=== PATIENT | female | born 1995 | race Caucasian/White ===

== ENCOUNTER → 2023-01-31 14:19 | Outpatient (CLI) | payer BC, SELFPAY ==
--- NOTE | ~2023-01-31 | US_ITS ---
EXAMINATION: US OB transvaginal DATE: 01/31/2023 14:53 INDICATION: First trimester viability assessment TECHNIQUE: Real-time pelvic transabdominal and transvaginal ultrasound was performed. COMPARISON: None. FINDINGS: The uterus measures 10.0 x 5.1 cm. There appears to be a 3.8 cm intramural fibroid of the a nterior uterine body. There is an intrauterine gestational sac. A yolk sac is identified. heart motion is identified measuring 114 beats per minute (bpm) by M-mode Doppler. The crown rump le ngth measures 4 mm, which correlates with an estimated gestational age of 6 weeks and 1 day(s) (+/-) 4 day(s). The right ovary measures 2.8 x 2.3 x 2.1 cm. The left ovary measures 5.9 x 6.4 x 5.6 cm and contains a 5.1 cm simple cyst. There is normal vascular flow in the ovaries. There is a small amount of free f luid in the pelvis. IMPRESSION: 1. Live intrauterine with an estimated gestational age of 6 weeks and 1 day(s) (+/-) 4 day( s) and an estimated delivery date of 09/25/2023. 2. Right ovarian cyst measuring 5.1 cm. 3. Probable uterine fibroid. Reviewed, dictated and finalized at location B. IMPRESSION: 1. Live intrauterine with an estimated gestational age of 6 weeks and 1 day(s) (+/-) 4 day(s) and an estimated delivery date of 09/25/2023. 2. Right ovarian cyst measuring 5.1 cm. 3. Probable uterine fibroid.
== END ==
PROVIDERS: PCP Advanced Practice Midwife; Visit Provider Advanced Practice Midwife
DX: O36.80X0 Pregnancy with inconclusive fetal viability, not applicable or unspecified (principal); Z3A.01 Less than 8 weeks gestation of pregnancy; O34.81 Maternal care for other abnormalities of pelvic organs, first trimester; N83.291 Other ovarian cyst, right side
CPT/HCPCS: 76817

== ENCOUNTER → 2023-02-17 09:20 | Outpatient (CLI) | payer BC, SELFPAY ==
--- NOTE | ~2023-02-17 | US_ITS ---
Pelvic ultrasound. Clinical History: First trimester , ovarian cyst COMPARISON: 01/31/2023 Technique: Realtime transabdominal and transvaginal scanning of the pelvis was performed. Color flow Doppler and Doppler spectral analysis were performed. Findings: The uterus is anteverted, and contains an intrauterine gestation. [place]-rump length of 2.0 cm corresponds to an estimated gestational age of 8 weeks 4 days. heart rate is 171 bpm. The right ovary measures 3.3 x 1.8 x 2.5 cm. No significant right ovarian or adnexal mass is seen. The left ovary measures 6.2 x 6.5 x 4.7 cm. Left ovarian cyst measures 4.7 cm in maximum diameter. There is no evidence of free fluid in the cul de sac. Impression: Live intrauterine gestation with estimated gestational age of 8 weeks 4 days. heart rate is 171 bpm. Left ovarian cyst measures 4.7 cm in diameter, similar to prior exam. Reviewed, dictated and finalized at location . Impression: Live intrauterine gestation with estimated gestational age of 8 weeks 4 days. F etal heart rate is 171 bpm. Left ovarian cyst measures 4.7 cm in diameter, similar to prior exam.
== END ==
PROVIDERS: PCP Obstetrics & Gynecology Gynecology; Visit Provider Obstetrics & Gynecology Gynecology
DX: N83.201 Unspecified ovarian cyst, right side (principal); Z3A.08 8 weeks gestation of pregnancy
CPT/HCPCS: 76801

== ENCOUNTER → 2023-05-05 09:26 | Outpatient (CLI) | payer BC, SELFPAY ==
--- NOTE | ~2023-05-05 | US_ITS ---
EXAMINATION: US OB /maternal detail DATE: 05/05/2023 10:13 INDICATION: anatomic survey. TECHNIQUE: Real-time ultrasound of the pelvis was performed. COMPARISON: Ultrasound 02/17/2023, 01/31/23 FINDINGS: There is a single living fetus in breech presentation. The placenta is posterior, 7.8 cm from the ce rvix. The cervical length is 3.8 cm on transabdominal images, which is normal. heart rate is 14 1 beats per minute (bpm). The amniotic fluid volume is subjectively normal. The following biometric data were obtained: Biparietal diameter (BPD): 4.5 cm; head circumference (HC): 17.3 cm; abdominal circumference (AC): 14 .9 cm; femur length (FL): 3.1 cm. These measurements are concordant. Estimated weight is 318 g +/- 48 g, which correlates with the 63rd percentile when 09/25/23 is us ed as estimated date of delivery. As single measurements, these parameters are each equal to the following estimated gestational ages: BPD: 19 weeks 5 days. HC: 19 weeks 6 days. AC: 20 weeks 1 days. FL: 19 weeks 4 days. estimated gestational age based solely on measurements from this exam is 19 weeks 6 days +/- 1 weeks 3 days. The cerebral ventricles, cerebellum, cisterna magna, nuchal fold, lip, and visualized portions of the spine are normal. The heart is normal. The diaphragm, stomach, kidneys, and bladder are normal. Ther e are two umbilical arteries to yield a 3-vessel cord. The cord insertion is normal. IMPRESSION: 1. Single living fetus in breech presentation. 2. Estimated weight is 318 g +/- 48 g, which correlates with the 63rd percentile when 09/25/23 i s used as estimated date of delivery. This date was set by ultrasound on 01/31/2023. 3. Normal anatomic survey. Reviewed, dictated and finalized at location E. SS REGISTRAR IMPRESSION: 1. Single living fetus in breech presentation. 2. Estimated weight is 318 g +/- 48 g, which correlates with the 63 pe rcentile when 09/25/23 is used as estimated date of delivery. This date was set b y ultrasound on 01/31/2023. 3. Normal anatomic survey.
== END ==
PROVIDERS: PCP Advanced Practice Midwife; Visit Provider Advanced Practice Midwife
DX: Z36.9 Encounter for antenatal screening, unspecified (principal); Z3A.19 19 weeks gestation of pregnancy
CPT/HCPCS: 76805

== ENCOUNTER → 2023-08-01 15:28 | Outpatient (CLI) | payer BC, SELFPAY ==
--- NOTE | ~2023-08-01 | US_ITS ---
EXAMINATION: US OB follow up DATE: 08/01/2023 15:55 INDICATION: Expected size greater than expected for estimated gestational age during third trimester of TECHNIQUE: Real-time ultrasound of the pelvis was performed. The interpreting radiologist was not pre sent for the study. COMPARISON: 05/05/2023 FINDINGS: There is a single living fetus in vertex presentation. The placenta is posterior and not low-lying. Normal cervical length of 4.0 cm. heart rate is 143 beats per minute (bpm). The amniotic fluid index is 12.9 cm, which is normal (5th%-95%: 8.6-24.2 cm at 32 weeks estimated gestational age). 2.5 cm hypoechoic fibroid at the anterior uterine wall. The following biometric data were obtained: BPD: 8.1 cm -> 32 weeks 4 days Head circumference: 29.6 cm -> 32 weeks 5 days Abdominal circumference: 30.6 cm -> 34 weeks 4 days Femur length: 6.1 cm -> 31 weeks 4 days The femur length to abdominal circumference ratio is slightly greater than 2 standard deviations belo w the mean. These measurements are otherwise concordant. Head circumference to abdominal circumference ratio: 0.97 (normal range 0.96-1.11). Estimated weight: 2172 g (+/-) 326 g or 4 lbs. 13 oz. (+/-) 11 oz. IMPRESSION: 1. Single living fetus in vertex presentation with heart rate of 143 bpm. 2. Normal amniotic fluid index of 12.9 cm. 3. Estimated weight is 78th percentile by Hadlock criteria when 10/05/2023 is used as the estima james date of delivery (CLYDE). Please correlate with clinical information or earlier ultrasounds for mos t accurate CLYDE. 4. Femur length to abdominal circumference ratio slightly greater than 2 standard deviations below th e mean. 5. 2.5 cm hypoechoic fibroid at the anterior uterine wall. Reviewed, dictated and finalized at location A. ENT OUTREACH COORDINATOR IMPRESSION: 1. Single living fetus in vertex presentation with heart rate of 143 bpm. 2. Normal amniotic fluid index of 12.9 cm. 3. Estimated weight is 78th percentile by Hadlock criteria when 10/05/2023 is used as the estimated date of delivery (CLYDE). Please correlate with clinica l information or earlier ultrasounds for most accurate CLYDE. 4. Femur length to abdominal circumference ratio slightly greater than [address] deviations below the mean. 5. 2.5 cm hypoechoic fibroid at the anterior uterine wall.
== END ==
PROVIDERS: PCP Obstetrics & Gynecology Gynecology; Visit Provider Obstetrics & Gynecology Gynecology
DX: O36.63X0 Maternal care for excessive fetal growth, third trimester, not applicable or unspecified (principal); D25.9 Leiomyoma of uterus, unspecified; Z3A.00 Weeks of gestation of pregnancy not specified
CPT/HCPCS: 76816

== ENCOUNTER 2023-09-01 10:23 | Outpatient (CLI) | payer BC, SELFPAY ==
--- NOTE | ~2023-09-01 | US_ITS ---
EXAMINATION: US OB follow up DATE: 09/01/2023 11:05 INDICATION: Estimated size greater than expected for estimated gestational age [facility] TECHNIQUE: Real-time ultrasound of the pelvis was performed. The interpreting radiologist was not pre sent for the study. COMPARISON: 08/01/2023 FINDINGS: There is a single living fetus in vertex presentation. The placenta is posterior. heart rate i s 148 beats per minute (bpm). The amniotic fluid index is 14.3 cm, which is normal (5th%-95%: 7.5-3 4.4 cm at 37 weeks estimated gestational age). The following biometric data were obtained: BPD: 9.1 cm -> 37 weeks 0 days Head circumference: 32.6 cm -> 37 weeks 0 days Abdominal circumference: 33. cm -> 337 weeks 1 days Femur length: 7.2 cm -> 36 weeks 4 days These measurements are concordant. Head circumference to abdominal circumference ratio: 0.98 (normal range 0.92-1.05). Estimated weight: 3090 g (+/-) 464 g or 6 lbs. 13 oz. (+/-) 1 lb. 0 oz. IMPRESSION: 1. Single living fetus in vertex presentation with heart rate of 148 bpm. 2. Normal amniotic fluid index of 14.3 cm. 3. Estimated weight is 50th percentile by Hadlock criteria when 09/20/2023 is used as the estimat ed date of delivery (CLYDE). Please correlate with clinical information or earlier ultrasounds for most accurate CLYDE. Reviewed, dictated and finalized at location A. IMPRESSION: 1. Single living fetus in vertex presentation with heart rate of 148 bpm. 2. Normal amniotic fluid index of 14.3 cm. 3. Estimated weight is 50th percentile by Hadlock criteria when 09/20/2023 is used as the estimated date of delivery (CLYDE). Please correlate with clinical information or earlier ultrasounds for most accurate CLYDE.
== END 2023-09-01 10:24 ==
LOC: MICIMG 10:24
PROVIDERS: PCP Obstetrics & Gynecology Gynecology; Visit Provider Obstetrics & Gynecology Gynecology
DX: O36.63X0 Maternal care for excessive fetal growth, third trimester, not applicable or unspecified (principal); Z3A.00 Weeks of gestation of pregnancy not specified
CPT/HCPCS: 76816

== ENCOUNTER 2023-09-23 17:00 | Inpatient (IN) | payer BC, SELFPAY ==
[2023-09-23] VITALS (12 sets, daily range): BP systolic 102–141; BP diastolic 51–82; PULSE 74–103; TEMP 36.3–36.6; BMI 45.0
--- NOTE | 2023-09-23 18:10 | LDADM ---
This patient, Sandra Sanchez, was admitted to Labor/Delivery/Recovery 104 on 09/23/23 at 17:00. Plans for labor, pain management and were discussed with patient. Patient/family oriented to hospital policies and general routines including ID bracelet, bed and alarms, visiting hours, pain management, procedures, bathroom and other care routines, personal items, smoking policy, room service/diet and guest tray routines, security routines, and visiting hours. Patient/Family are encouraged to report perceived risks to care and to ask questions if they do not understand what they are told or what they should do. See OBIX for further documentation.
[2023-09-23] MEDS: miSOPROStol 25 MCG TABLET SUBLINGUAL (18:46)
[2023-09-23 19:29] LABS: Basophils Percent Auto 0.3 % (0.2-1.2); Eosinophils Absolute Auto 0.1 K/mm3 (0-0.3); Eosinophils Percent Auto 0.5 % (0-4.4); Hematocrit 31.1 % (37.0-47.0); Hemoglobin 10.2 g/dL (12.0-15.0); Immature Granulocyte Absolute 0.12 K/mm3 (0.00-0.031); Immature Granulocyte Percent A 0.8 % (0-0.5); Lymphocytes Absolute Auto 1.83 K/mm3 (0.9-3.2); Lymphocytes Percent Auto 12.9 % (18.3-44.2); Mean Corpuscular HGB Conc 32.8 g/dl (32-36); Mean Corpuscular Hemoglobin 27.9 pg (26-34); Mean Corpuscular Volume 85.2 fl (80-100); Mean Platelet Volume 11.6 fl (7.4-10.4); Monocytes Absolute Auto 0.9 K/mm3 (0.1-0.6); Monocytes Percent Auto 6.1 % (2.6-8.5); Neutrophils Absolute Auto 11.3 K/mm3 (1.3-6.7); Neutrophils Percent Auto 79.4 % (45.5-73.1); Platelet Count Result 284 k/mm3 (150-375); Red Blood Count 3.65 M/mm3 (4.2-5.4); Red Cell Distribution Width 13.1 % (11.5-14.5); White Blood Count 14.2 K/mm3 (4.5-10.0)
--- NOTE | 2023-09-23 19:34 | WPDANESEPP ---
Anes - Eval Pre Procedure Procedure: labor epidural Date/Time: 09/23/23 19:34 Surgeon: josie Preop Diagnosis: pain during labor Pre Op Diagnosis: IOL Patient Data Age: 28 Gender: F Height: 1.7 m Weight: 130.5 kg Last Vital Signs Temp 36.3 C L 09/23/23 18:50 Pulse 78 09/23/23 19:03 BP 109/51 L 09/23/23 19:03 O2 Del Method Room Air 09/22/23 08:00 Allergies Allergy/AdvReac Type Severity Reaction Status Date / Time No Known Allergies Allergy Verified 09/23/23 17:58 Home Medications Medication Instructions Recorded Confirmed Type aspirin 81 mg tablet 81 mg PO DAILY 09/01/23 09/01/23 History cholecalciferol (vitamin D3) 1,250 1,250 mcg PO WEEKLY 09/01/23 09/01/23 History mcg (50,000 unit) tablet cyanocobalamin (vitamin B-12) 500 500 mcg PO DAILY 09/01/23 09/01/23 History mcg tablet (Vitamin B-12) escitalopram oxalate 10 mg tablet 10 mg PO DAILY 09/01/23 09/01/23 History (Lexapro) loratadine 10 mg tablet (Claritin) 10 mg PO DAILY 09/01/23 09/01/23 History prenat.vits,char,aci-gyjb-wadck 1 tablet PO DAILY 09/01/23 09/23/23 History valacyclovir 500 mg tablet 500 mg PO Q12H 09/01/23 09/01/23 History (Valtrex) Laboratory Tests 09/23/23 09/23/23 17:56 19:18 WBC 14.2 H K/mm3 (4.5-10.0) RBC 3.65 L M/mm3 (4.2-5.4) Hgb 10.2 L g/dL (12.0-15.0) Hct 31.1 L % (37.0-47.0) MCV 85.2 fl (80-100) MCH 27.9 pg (26-34) MCHC 32.8 g/dl (32-36) RDW 13.1 % (11.5-14.5) Plt Count 284 k/mm3 (150-375) MPV 11.6 H fl (7.4-10.4) Immature Gran % (Auto) 0.8 H % (0-0.5) Neut % (Auto) 79.4 H % (45.5-73.1) Lymph % (Auto) 12.9 L % (18.3-44.2) [place] % (Auto) 6.1 % (2.6-8.5) Eos % (Auto) 0.5 % (0-4.4) Baso % (Auto) 0.3 % (0.2-1.2) Lymph # (Auto) 1.83 K/mm3 (0.9-3.2) [place] # (Auto) 0.9 H K/mm3 (0.1-0.6) Eos # (Auto) 0.1 K/mm3 (0-0.3) Baso # (Auto) 0.0 K/mm3 (0.0-0.1) Abs Immat Gran (auto) 0.12 H K/mm3 (0.00-0.031) Absolute Neuts (auto) 11.3 H K/mm3 (1.3-6.7) Absolute Nucleated RBC 0.000 K/mm3 (0.0-0.012) Nucleated RBC % 0.0 % (0.0-0.2) RPR Pending Blood Type O Positive Antibody Screen Pending Patient hx anesthesia problems: none Family hx anesthesia problems: none Results Review: All pre-operative results and documents have been reviewed as part of the pre-operative evaluation. [facility] Past Medical History Medical History (Updated 09/23/23 @ 19:36 by Cecilia Castañeda CRNA) Anxiety Depression HSV (herpes simplex virus) anogenital infection Hx of migraines IUP (intrauterine ), incidental Morbid obesity Family History Family History (Updated 09/01/23 @ 13:57 by Radha Granados RN) Father Diabetes mellitus Social History Social History Smoking status: Never smoker Substance use: never Do You Feel Safe in your Home?: Yes Lack of Transportation: No Lack of Food: Never True Current Housing: I Do Not Have Housing Concerned About Future Housing: No Difficulty Paying Gas/Electric Bills: No Difficulty Paying for Meds: No Currently Unemployed: No Education: Master's Degree or Higher Difficulty w/ Childcare or Family Care: No Spiritual care concerns: No Exam Day of Procedure 09/23/23 19:34
[2023-09-23] MEDS: miSOPROStol 25 MCG TABLET 50 MCG BY MOUTH (22:51)
[2023-09-23] MEDS: ACETAMINOPHEN 500 MG TABLET 1000 MG PO (23:54)
[2023-09-24] VITALS (187 sets, daily range): BP systolic 74–139; BP diastolic 33–93; PULSE 39–134; RESP 16; TEMP 36.2–37; O2SAT 83–100
[2023-09-24] MEDS: LACTATED RINGERS 1,000 ML 125 ML IV CONT ×3 (02:59→06:04)
[2023-09-24] MEDS: fentaNYL CITRATE INJ (*CRX) 100 MCG/2 ML VIAL 50 MCG IV PUSH (03:00)
[2023-09-24] MEDS: OXYTOCIN 30 UNITS/NS 500 ML 30 UNITS/500 ML BAG IV CONT (03:16)
[2023-09-24] MEDS: PHENYLEPHRINE 1,000 MCG/10 ML SYRINGE 100 MCG IV PUSH ×3 (05:16→05:43)
[2023-09-24] MEDS: ONDANSETRON INJ 4 MG/2 ML VIAL IV PUSH (05:27)
--- NOTE | 2023-09-24 07:43 | WPDOBADMIT ---
Obstetrics - Admit Note Admission Note: record reviewed. No pertinent additions to the history and/or any subsequent changes in the physical findings that are not consistent with the expected course of the were found. Additions to the history and/or subsequent changes in the physical findings follow. None.
--- NOTE | 2023-09-24 07:43 | PM.OBPNLAB ---
Pain Control Date/time seen: 09/24/23 CNM at bedside. Pain control: tolerating well and epidural Pelvic Exam Dilation (cm): 4 (4.5) Effacement (%): 90 station: -2 Amniotic membrane status: Bulging Comments: head well applied to cervix. Contractions Monitor mode: External (RN unable to trace ctx well with toco despite frequent repositioning. ) Contraction phase: Contraction Contraction intensity: Moderate Status status: Category l Assessment and Plan Pitocin rate (mU/min): 2 Assessment: induction ongoing Plan: continuous present management Comments: CNM to bedside. Discussed plan of care an option for amniotomy and IUPC placement. Discussed risks, benefits, and expectations of breaking water. Patient is agreeable. Bright light exam negative. Amniotomy performed and there was a small return of clear amniotic fluid. IUPC inserted easily and filled with clear fluid. Patient tolerated procedure well. Anticipate vaginal . Dr. Ellis updated.
--- NOTE | 2023-09-24 07:46 | PM.OBPRVD ---
OB - Vaginal Delivery Note Procedure Delivery date: 09/24/23 Events: Elective Induction of Labor Induction method: Per Misoprostol Protocol and Per Pitocin Protocol Delivery augmentation: Rupture of Membranes Delivery monitor: External FHT and Internal Uterine Route of delivery: Episiotomy description: None Laceration Description: Periurethral and Vaginal (1st degree) Delivery repair: vicryl (of the 1st degree vaginal lacertaion) Specimen: No Quantitative Blood Loss (ml): 65 Anesthesia type: Epidural Disposition: Floor Complications: No immediate complications Baby Date of : 09/24/23 Time of : 11:43 Weeks of gestation at delivery: 39 gender: Female Weight (pounds): 0 (infant weight unavailable at the time of this note. ) presentation: vertex position: Right Occiput Anterior Placenta delivery description: Spontaneous and Normal Configuration Cord Vessel Description: 3 Vessels and Delayed Cord Clamping score one minute: 9 score five minutes: 9 Narrative: Sandra Arrived for elective induction of labor at term. She received 2 doses of Cytotec followed by Pitocin. She progressed quickly to complete dilation and pushed very well with contractions. She brought the head to a complete crown in smoothly delivered the head. There was excellent restitution and quick delivery of the anterior and posterior shoulders followed by the remainder of the infant. The was placed on the maternal abdomen and dried and stimulated by the nursery staff. After 1 minute of life, the cord was doubly clamped and cut. Cord blood, cord gases, and cord segment were obtained. The placenta delivered spontaneously and was found to be intact with central cord insertion. Mother and infant skin the skin in the delivery room. There was excellent hemostasis and uterine tone. All delivery counts correct.
--- NOTE | 2023-09-24 07:46 | PM.OBDSVD ---
DS: Admitting Diagnosis Discharge Date 09/25/23 Admitting Diagnosis 28 y.o. at 39 weeks elective IOL Rubella Non-Immune Anxiety/Depression Hx HSV1 (0ral lesion only) DS: Discharge Diagnosis Discharge Diagnosis (1) Anxiety and depression: Code(s): F41.9 - Anxiety disorder, unspecified; F32.A - Depression, unspecified Status: Acute (2) Mother currently breast-feeding: Code(s): Z39.1 - Encounter for care and examination of lactating mother Status: Acute (3) (normal spontaneous vaginal delivery): Code(s): O80 - Encounter for full-term uncomplicated delivery Status: Acute (4) Rubella non-immune status, delivered, current hospitalization: Code(s): O99.892 - Other specified diseases and conditions complicating childbirth; Z28.39 - Other underimmunization status Status: Acute OB - DS: Summary Hospital Course Hospital Course: Uncomplicated OB Procedures : Ultrasound OB Procedures Intrapartum: Spontaneous Vag Delivery OB Procedures: : Rubella lg Peripartum Data Delivery Method: Natural Vaginal Laceration Description: Periurethral and Vaginal Episiotomy description: None complications: none Time Spent with Patient Time attestation: Total time spent providing and/or coordinating discharge services: Exam Narrative: Alert and oriented. Mood is pleasant and cooperative. Perineum with minimal edema. Fundus firm and below umbilicus. Const: General: cooperative, healthy appearing, no acute distress and alert Orientation/consciousness: patient oriented x3 Limitations: no limitations Resp: Effort & Inspection: normal respiratory effort and able to speak in complete sentences Auscultation: clear to auscultation bilaterally Cardio: Rate: regular rate GI: Inspection: normal to inspection Auscultation: normal bowel sounds : General: Yes bladder normal to palpation External Female Exam: other (lochia WNL) Bimanual exam- vagina & uterus: bladder normal to palpation Other: Fundus firm and below U Skin: General skin exam: normal color and no rashes or lesions noted Neuro: General: patient oriented x3 and moves all extremities Cognition (Neuro): normal cognition Extrem: General: normal to inspection and no calf tenderness Psych: Appearance: grossly normal Mental Status: mental status grossly normal Affect: normal affect Thought process: Normal thought process present DS: Data Data Completed and Pending Labs on day of discharge: Labs from last 24 hours 04/07/24 04/07/24 19:18 17:56 WBC 14.2 H RBC 3.65 L Hgb 10.2 L Hct 31.1 L MCV 85.2 MCH 27.9 MCHC 32.8 RDW 13.1 Plt Count 284 MPV 11.6 H Immature Gran % (Auto) 0.8 H Neut % (Auto) 79.4 H Lymph % (Auto) 12.9 L [place] % (Auto) 6.1 Eos % (Auto) 0.5 Baso % (Auto) 0.3 Lymph # (Auto) 1.83 [place] # (Auto) 0.9 H Eos # (Auto) 0.1 Baso # (Auto) 0.0 Abs Immat Gran (auto) 0.12 H Absolute Neuts (auto) 11.3 H Absolute Nucleated RBC 0.000 Nucleated RBC % 0.0 RPR Pending Blood Type O Positive Antibody Screen Negative Discharge Plan Discharge Attending physician on discharge: Isabelle Ellis Discharging Clinician: Aline Fournier Anticipated Discharge Date/Time: 09/25/23 11:00 Patient Disposition: Home, Self-Care Activity: may shower and pelvic rest Diet: as tolerated and regular Discharge Instructions: Continue taking your vitamin and any other supplements as previously directed (Examples: Iron, Vitamin D). You may take Tylenol 1000mg over the counter every 6 hours as needed for pain. Do not exceed 4000mg of Tylenol daily. You may continue using tucks pads and dermoplast spray if needed for a few more days. Depression Notify provider for signs or symptoms. These may include- Feelings: Feeling anxious, angry, hopeless, guilt, or loss of interest/pleasure i
--- NOTE | 2023-09-24 07:48 | PM.OBPNLAB ---
Pain Control Date/time seen: 09/24/23 07:05. CNM called for update. Pt doing well. Was last 4cm on RN SVE.
[2023-09-24] MEDS: OXYTOCIN 30 UNITS/NS 500 ML 30 UNITS/500 ML BAG 125 UNITS IV CONT (12:16)
[2023-09-24] MEDS: WITCH HAZEL 40 PADS 1 PAD TOPICAL (13:29)
[2023-09-24] MEDS: BENZOCAINE 20% AER SPR (*SP) 56 GM CAN 1 SPRAY TOPICAL (13:29)
--- NOTE | 2023-09-24 14:22 | PC.NURSE ---
Patient transferred to post room #286 per wheelchair from labor and delivery. Support person present. Oriented to unit, room, information board, rooming in, admission packet and security measures. Patient verbalizes understanding.
[2023-09-24 15:10] LABS: Rapid Plasma Reagin Non-Reactive (NonReactive)
[2023-09-24] MEDS: valACYclovir HCL 500 MG TABLET PO (21:30)
[2023-09-24] MEDS: ACETAMINOPHEN 325 MG TABLET 650 MG PO (21:35)
[2023-09-25 04:35] VITALS: BP 113/68; PULSE 73; RESP 16; TEMP 37.1; O2SAT 99
[2023-09-25] MEDS: ACETAMINOPHEN 325 MG TABLET 650 MG PO (04:49)
[2023-09-25 04:56] LABS: Hematocrit 27.5 % (37.0-47.0); Hemoglobin 8.9 g/dL (12.0-15.0)
[2023-09-25 07:20] VITALS: BP 114/66; PULSE 76; RESP 16; TEMP 37; O2SAT 99
--- NOTE | 2023-09-25 07:46 | PM.OBPNVD ---
OB - PN: Subj Subjective Date/time seen: 09/25/23 07:25 Interval history: Doing well. Urinating without difficulty. Denies passing any large clots. Denies dizziness with ambulating. Tolerating po food and fluids. Bonding with . and bottle feeding well. Patient comments: no complaints and pain well controlled baby status: doing well, nursing well and bottle feeding well [place] feeding status: breast and bottle feeding OB - PN: Obj Data Labs 09/25/23 04:47 Labs: Laboratory Results - last 24 hr 09/23/23 09/25/23 17:56 04:47 Hgb 8.9 L Hct 27.5 L RPR Non-reactive OB - PN A/P Assessment and Plan (1) (normal spontaneous vaginal delivery): Code(s): O80 - Encounter for full-term uncomplicated delivery Status: Acute (2) Mother currently breast-feeding: Code(s): Z39.1 - Encounter for care and examination of lactating mother Status: Acute (3) Anxiety and depression: Code(s): F41.9 - Anxiety disorder, unspecified; F32.A - Depression, unspecified Status: Acute (4) Rubella non-immune status, delivered, current hospitalization: Code(s): O99.892 - Other specified diseases and conditions complicating childbirth; Z28.39 - Other underimmunization status Status: Acute Assessment and Plan: Plan MMR prior to DC Plan day: 1 Plan: discharge home Comments: Pt desires DC home today. Time Spent With Patient Time: Total time spent is greater than 50% in coordination of care (as documented) at patient's floor/unit and/or counseling patient: Review of Systems Review of Systems: All systems reviewed & are unremarkable except as noted in HPI and below Exam Narrative: Alert and oriented. Mood is pleasant and cooperative. Perineum with minimal edema. Fundus firm and below umbilicus. Const: General: cooperative, healthy appearing, no acute distress and alert Orientation/consciousness: patient oriented x3 Limitations: no limitations Resp: Effort & Inspection: normal respiratory effort and able to speak in complete sentences Auscultation: clear to auscultation bilaterally Cardio: Rate: regular rate GI: Inspection: normal to inspection Auscultation: normal bowel sounds : General: Yes bladder normal to palpation External Female Exam: other (lochia WNL) Bimanual exam- vagina & uterus: bladder normal to palpation Other: Fundus firm and below U Skin: General skin exam: normal color and no rashes or lesions noted Neuro: General: patient oriented x3 and moves all extremities Cognition (Neuro): normal cognition Extrem: General: normal to inspection and no calf tenderness Psych: Appearance: grossly normal Mental Status: mental status grossly normal Affect: normal affect Thought process: Normal thought process present
--- NOTE | 2023-09-25 09:13 | PC.NURSE ---
[id number] Introductions were made and Mother verbalizes she is able to independently latch infant without any nipple discomfort and is and bottle feeding per her preference because she assumed there would be a need to supplement. We discussed how to watch for early feeding cues, responsive feeding, feeding on demand (aiming for 8-12 times in 24 hours, about every 2-3 hours), milk production, building/maintaining a milk supply, duration of feeding, signs of adequate intake/output and how to record on the feeding sheet. Education given to the parents of how to visualize the suckling (with good rocking jaw motion), swallows (dropping of the lower jaw) and how to listen for drinking at the breast (the ka sound). Reviewed comfort measures of healing with a warm, wet washcloth to rinse breast, then leave open to air-dry, good handwashing when or touching the breast/nipples to prevent infection and engorgement. is currently meeting outcomes for weight, output, jaundice, blood sugar and feeding frequencies of 8-12 times in 24 hours. Mother declines any additional assistance or education at this time. Mother is encouraged to call for assistance if her doesn?t latch, pain with latching, latch and swallow assessment to build confidence in knowing is effectively , questions or concerns. Mother voiced understanding of information shared along with the mom/baby guide for an additional resource.
[2023-09-25] MEDS: MULTIVIT/MIN/PREN/FOL AC/IRON TABLET 1 TAB PO (09:39)
[2023-09-25] MEDS: POLYSACCHARIDE IRON COMPLEX 150 MG CAPSULE PO (09:39)
[2023-09-25] MEDS: valACYclovir HCL 500 MG TABLET PO (09:39)
[2023-09-25] MEDS: ESCITALOPRAM OXALATE 10 MG TABLET PO (09:40)
[2023-09-25] MEDS: LORATADINE 10 MG TABLET PO (09:40)
[2023-09-25] MEDS: MEASLES,MUMPS,RUBELLA VACCINE 0.5 ML VIAL SUB-Q (09:41)
--- NOTE | 2023-09-25 19:42 | PC.NURSE ---
1100 Patient viewed the discharge video Mother & Baby Care, The First Two Weeks . Patient was given the opportunity and encouraged to ask questions. Patient verbalized understanding of information shared and has been given the mother/baby guide for home reference.
[2023-09-26 13:46] VITALS: BP 126/79; PULSE 74; RESP 18; TEMP 36.9; O2SAT 100
== END 2023-09-25 15:28 | disposition home or self-care (01) | DRG 807 ==
LOC: ANHLDR 09-24 07:48 → ANHOB2 09-24 14:26
PROVIDERS: Advanced Practice Midwife; Admitting Provider Obstetrics & Gynecology Gynecology; Visit Provider Obstetrics & Gynecology Gynecology
DX: O98.32 Other infections with a predominantly sexual mode of transmission complicating childbirth (principal); Z37.0 Single live birth; Z3A.39 39 weeks gestation of pregnancy; A60.00 Herpesviral infection of urogenital system, unspecified; O70.0 First degree perineal laceration during delivery; O99.344 Other mental disorders complicating childbirth; F32.A Depression, unspecified; F41.9 Anxiety disorder, unspecified; Z28.39 Other underimmunization status
CPT/HCPCS: 36415; 85014; 85018; 85025; 86592; 86850; 86900; 86901; 90710; A9270; J2371; J2405; J2590; J2795; J3010; J7120

== ENCOUNTER 2024-08-23 11:18 | Outpatient (CLI) | payer BC, SELFPAY ==
--- NOTE | ~2024-08-23 | US_ITS ---
Pelvic ultrasound. Clinical History: First trimester , establish dates and viability Technique: Realtime transabdominal scanning of the pelvis was performed. Color flow Doppler and Doppl er spectral analysis were performed. Findings: The uterus is anteverted, and contains an intrauterine gestation. Ferron-rump length of 2.5 cm corresponds to an estimated gestational age of 9 weeks 2 days. heart rate is 173 bpm. The right ovary measures 3.1 x 4.0 x 2.5 cm. No significant right ovarian or adnexal mass is seen. The left ovary is not visualized. No significant left ovarian or adnexal mass is seen. There is no evidence of free fluid in the cul de sac. Impression: Live intrauterine gestation, with estimated gestational age of 9 weeks 2 days. heart rate is 17 3 bpm. Sonographic CLYDE is 03/26/2025. Reviewed, dictated and finalized at [facility]. Impression: Live intrauterine gestation, with estimated gestational age of 9 weeks 2 days. heart rate is 173 bpm. Sonographic CLYDE is 03/26/2025.
== END 2024-08-23 11:19 | disposition home or self-care (01) ==
PROVIDERS: PCP Nurse Practitioner Women's Health; Visit Provider Nurse Practitioner Women's Health
DX: O36.80X0 Pregnancy with inconclusive fetal viability, not applicable or unspecified (principal); Z3A.00 Weeks of gestation of pregnancy not specified
CPT/HCPCS: 76801

== ENCOUNTER 2024-11-08 08:54 | Outpatient (CLI) | payer BC, SELFPAY ==
--- NOTE | ~2024-11-08 | US_ITS ---
COMPLETE AND LIMITED MATERNAL ULTRASOUND (Duplex and color flow interrogation techniques used f or this exam.) Ordering provider: Isabelle Ellis MD History: . Anatomy screen . Comparison: None. Findings: Number of fetuses: 1 BIOMETRY: BPD: 4.7 cm (20 weeks 1 days) HC: 18.22 cm (20 weeks 4 days) AC: 16.47 cm (21 weeks 4 days) FL: 3.47 cm (21 weeks 0 days) CI: 71.43. FL/BPD: 73.83. HC/AC: 1.11. FL/AC: 21.07. FL/HC: 19.05 Parametric ratios: Today's average US gestational age: 20 weeks 6 days Today's EDC: March 22, 2025 ( Estimated weight: 402.65 g. Rank: 88.5% SCREENING OF ANATOMY: ( Y =seen and unremarkable.) Cerebellum: Y. Lateral ventricles: Y ( 7.5 mm) Cisterna magna: Y ( 4.6 mm) Nuchal thickness is 0.38 cm. Stomach: Y Kidneys: Y Bladder: Y Spine: Y Three vessel cord: Y Cord insertion: Y Four chamber heart: Y LVOT: Y RVOT: Y Lips and nose: Y Upper extremity: Y Lower extremity: Y Cervix: Y ( 44 mm ) Presentation: Breech. Transverse lie. Placental location: Posterior Previa: N. Placenta to cervix is 6.11 cm. Amniotic fluid index: Normal. Heart rate: 133 bpm Fire Prevention Forester comments: IMPRESSION: Single live fetus of transverse lie with breech presentation. Gestational age: 20 weeks and 6 days. CLYDE is March 22, 2025 Reviewed, dictated and finalized at location A.
== END 2024-11-08 08:55 | disposition home or self-care (01) ==
LOC: MICIMG 08:58
PROVIDERS: PCP Obstetrics & Gynecology Gynecology; Visit Provider Obstetrics & Gynecology Gynecology
DX: Z36.9 Encounter for antenatal screening, unspecified (principal)
CPT/HCPCS: 76805

== ENCOUNTER 2024-12-27 10:02 | Outpatient (CLI) | payer BC, SELFPAY ==
--- NOTE | ~2024-12-27 | US_ITS ---
EXAMINATION: US OB follow up DATE: 12/27/2024 10:33 INDICATION: Suspected size greater than expected for estimated gestational age at the transitio n from the 2nd-3rd trimester . TECHNIQUE: Real-time ultrasound of the pelvis was performed. The interpreting radiologist was not pre sent for the study. COMPARISON: None. FINDINGS: There is a single living fetus in breech presentation. The placenta is posterior and not low-lying w ith caudal margin at least 7 cm from the internal cervical os. Cervical length measures 4.1 cm which is normal. heart rate is 138 beats per minute (bpm). The amniotic fluid index is 17.6 cm, whic h is normal (5th%-95%: 9.5-22.6 cm at 27 weeks estimated gestational age). The following biometric data were obtained: BPD: 6.9 cm -> 27 weeks 5 days Head circumference: 25.3 cm -> 27 weeks 3 days Abdominal circumference: 24.0 cm -> 28 weeks 2 days Femur length: 4.9 cm -> 26 weeks 3 days These measurements are concordant. Head circumference to abdominal circumference ratio: 1.05 (normal range 1.04-1.22). Estimated weight: 1087 g (+/-) 163 g or 2 lbs. 6 oz. (+/-) 6 oz. IMPRESSION: 1. Single living fetus in breech presentation with heart rate of 138 bpm. 2. Normal amniotic fluid index of 17.6 cm. 3. Estimated weight is 47th percentile by Hadlock criteria when 03/26/2025 is used as the estima james date of delivery (CLYDE). Please correlate with clinical information or earlier ultrasounds for mos t accurate CLYDE. Reviewed, dictated and finalized at location A. IMPRESSION: 1. Single living fetus in breech presentation with heart rate of 138 bpm. 2. Normal amniotic fluid index of 17.6 cm. 3. Estimated weight is 47th percentile by Hadlock criteria when 03/26/2025 is used as the estimated date of delivery (CLYDE). Please correlate with clinica l information or earlier ultrasounds for most accurate CLYDE.
== END 2024-12-27 10:03 | disposition home or self-care (01) ==
LOC: MICIMG 10:03
PROVIDERS: PCP Obstetrics & Gynecology Gynecology; Visit Provider Obstetrics & Gynecology Gynecology
DX: O36.63X0 Maternal care for excessive fetal growth, third trimester, not applicable or unspecified (principal); Z3A.00 Weeks of gestation of pregnancy not specified
CPT/HCPCS: 76816

== ENCOUNTER 2025-03-23 06:23 | Inpatient (IN) | payer BC, SELFPAY ==
[2025-03-23] VITALS (57 sets, daily range): BP systolic 91–124; BP diastolic 43–78; PULSE 42–143; RESP 16–20; TEMP 36.1–37; O2SAT 84–100; BMI 48.3
--- OUTSIDE RECORDS SUMMARY | 2025-03-23 06:50 | XMS_ITS ---
Author Organization [facility] Source Produ ction (ClinicalSummary Clone) Address Unknown Care Team Providers Care Fire Engineer Name Role Phone Unavailable Primary Care Physician Unavailab le Results * [UNITY] CARRIER SCREEN Performed by: [email or web address] Component Value Range Date Sickle Cell Disease/Beta-Thalassemia/Hemo globinopathies carrier screen NEGATIVE 09/30/2024 03:23 am [facility] Alpha-Thalassemia carrier screen NEGATIVE 09/30/2024 03:23 am [facility] Cystic Fibrosis carrier screen NEGATIVE 09/30/2024 03:23 am [facility] Spinal Muscular Atrophy carrier screen NEGATIVE 2 SMN1 copies, SNP not present 09/30/2024 03:23 am [facility] For detailed report, see PDF See PDF 09/30/2024 03:23 am [facility] 09/30/2024 03:2 3 am [facility] Social History Observation Value Start Date End Date
--- OUTSIDE RECORDS SUMMARY | 2025-03-23 06:50 | XMS_ITS | Clinical Summary ---
Author Organization PASCUAL YOUNGER MD Address [address], [facility] [address] [place] [address] Phone Care Team Providers Care Cable Tool Driller Name Role Phone Pascual Younger MD Primary Care Provider [phone] Allergies No known active allergies Medications escitalopram (LEXAPRO) 10 MG TabletIndication s:Depression, major, recurrent, mild Take 1 Tablet by mouth daily. 90 Tablet 2 03/23/2022 Active Active Problems Problem Noted Date Diagnosed Date Status post bariatric surgery 12/20/2021 Vitamin D deficiency 10/15/2020 Encounter for annual routine gynecological exami [facility] [place] 10/12/2017 Healthcare maintenance (Adult) 10/23/2015 Screening for lipid disorders 10/23/2015 Screening for breast cancer 10/23/2015 Menorrhagia with irregular cycle 10/23/2015 Dysmenorrhea 10/23/2015 Depression, major, recurrent, mild 10/23/2015 Classic migraine 10/23/2015 Seasonal allergic rhinitis due to pollen 016 Morbid obesity with BMI of 40.0-44.9, adult 12/2015 Immunizations Immunization Administration Dates Next Due Covid-19, Mrna, Lnp-s, PF, 1 00 mcg/0.5 mL Dose (Moderna) 08/05/2020,07/08/2020 DTAP VACCINE 11/16/1999 DTAP VACCINE, UNSPECIFIED FORMULATION 03/13/1996 DTP Vaccine 02/27/1995,1994,1994 Hepatitis B Vaccine, Pediatric/adolescent 03/16/2003,04/29/2002,03/28/2002 Hib Vaccine,unspecified Formulation 02/17,02/27/1995,1994,10/24 Human Papillomavirus Vaccine (HPV), quadrivalent 01/08/2012,01/30/2011 Inactivated Polio Vaccine 11/16/1999 Influenza, Injectable, Quadrivalent 03/29/2021 MMR Vaccine 11/16/1999,12/25/1995 Meningococcal C Conjugate Vaccine 01/30/2011, OPV 02/27/1995,1994,1994 Polio Vaccine,unspecified Formulation 03/13/1996 TDAP Vaccine 09/11/2008 Family History Medical History Relation Name Comments Asthma Father Diabetes Father Relation Name Status Comments Father Alive Mother Alive Social History Tobacco Use Types Packs/Day Years Used Date Smoking Tobacco: Never Smokeless Tobacco: Never Tobacco Cessation:Counseling Given: Yes Alcohol Use Standard Drinks/Week Comments Yes 0 (1 standard drink = 0.6 oz pur e alcohol) PHQ-2 Answer Date Recorded Total Score - Questions 1-9 0 09/17 Sexually Active Control Partners Comments Yes Oral Contraceptive Male Comments No Sex and Gender Information Value Date Recorded Sex Assigned at Not on file Legal Sex Female 8:45 PM CDT Gender Identity Not on file Sexual Orientation Not on file Last Filed Vital Signs Vital Sign Reading Time Taken Comments Blood Pressure 108/64 12/20/2021 11:15 AM CDT Pulse 60 12/20/2021 11:15 AM CDT Temperature 36.2 C (97.1 F) 12/20/2021 11:15 AM CDT Respiratory Rate 16 12/20/2021 11:1 5 AM CDT Oxygen Saturation 96% 12/20/2021 11: 15 AM CDT Inhaled Oxygen Concentration - - Weight 110.5 kg (243 lb 11.2 oz) 2021 11:15 AM CDT Height 168.9 cm (5' 6.5) 12/20/2021 11 :15 AM CDT Body Mass Index 38.74 12/20/2021 11:15 AM CDT Plan of Treatment Health Maintenance Due Date Last Done Comments Hepatitis C Virus (HCV) Screening 1994 Human Papillomavirus (HPV) Immunization (3 - 3-dose series) 04/01/2012 01/08/2012, 01/30/2011 DTaP/Tdap/Td Immunization (7 - Td or Tdap) 09/11/2018 09/11/2008, 11/16/1999, 03/13/1996, Additional history exists Pap Smear 10/12/2020 10/12/2017 Cervical Cancer Screening (CCS) 2024 HPV/Cotest 2024 Influenza Immunization (#1) 2025 05/29/2022, 1 SARS-COV-2 Immunization ( season) 2025 05/29/2022, 04/13/2021, 08/05/2020, Additional history exists Respiratory Syncytial Virus (RSV) Immunization (Adult) (1 - 1-dose 75+ series) 2069 Hepatitis B Immunization Completed 003, 04/29/2002, 03/28/2002 Meningococcal Immunization (ACWY) Aged Out No longer eligible based on patient's age to complete this topic Pneumococcal Immunization Combined Aged Out No longer eligible based on patient's age to complete this topic Rotavirus Immunization Aged Out No lo nger eligible based on patient's age to complete this topic Procedures Procedure Name Priority Date/Time Associated Diagnosis Comments PATHOLOGY CYTOLOGY REAL ESTATE AGENCY LICENSEE Routine 10/12/2017 9:27 AM CDT Healthcare maintenance (Adult) Encounter for annual routine gynecological examination from Last 3 Months or Most Recently Relevant to Health Maintenance Results * PATHOLOGY CYTOLOGY REAL ESTATE AGENCY LICENSEE (10/12/2017 9:27 AM CDT) SPECIMEN ADEQUACY Satisfactory for evaluation 10/15/2017 10:08 AM CDT [facility] DESCRIPTIVE DIAGNOSIS NEGATIVE FOR INTRAEPITHELIAL LESIONS OR MALIGNANCY. 10/15/2017 10:08 AM T [facility] at 1008 CDT Clinical Information z00.00, Z01.419. 10/15/2017 10:08 AM T [facility] DISCLAIMER The PAP smear is a screening test designed to detect cancerous or precancerous cells of the uterine cervix. It is one of the best means available for detection of cervical cancer but still carries an inherent false-negative rate. The consequences of a false-negative PAP result can be minimized by adhering to current screening guidelines. The following are general guidelines recommended by the ACS, ASCP, ASCCP, and ACOG: PAP testing is recommended every three years for women 21-29, Co-Testing, a PAP test in conjunction with an HPV (Human Papillomavirus) test for women ages 30-65, and no PAP or HPV testing for women under the age of 21 or older than 65 unless clinically indicated. 10/15/2017 10:08 AM [facility] Case Report Gynecologic Cytology Report Case: [id number] Authorizing Provider: Pascual Younger MD Collected: 10/12/2017 09:27 AM Ordering Location: [facility] [place] PASCUAL YOUNGER MD Received: 10/12/2017 09:27 AM First Screen: [place] Specimen: [facility] PAP THIN LAYER, CERVIX/ENDOCERVIX 10/15/2017 10:08 AM [facility] HPV Reflex if ASCUS? Yes 10/15/2017 10:08 AM [facility] Specimen of unknown material (specimen) CERVIX UTERI STRUCTURE / Unknown 10/12/2017 9:27 AM CDT 10/12/2017 9:27 AM CDT us Pascual Younger MD PATHOLOGY/CYTOLOGY ORDERABLES Final Result Performing Organization Address City/State/[facility] Co de Phone Number [facility] [address] [place] [address] from Last 3 Months or Most Recently Relevant to Health Maintenance [place] [address] [facility] Care Teams Cable Tool Driller Relationship Specialty Start Date End Date Pascual Younger MD [address] [facility] [address] [address] PCP - General Family Medicine 10/23/15
--- OUTSIDE RECORDS SUMMARY | 2025-03-23 06:50 | XMS_ITS | Clinical Summary ---
Author Organization [facility] Address [address] [place] [id number] Care Team Providers Care Plant Operations Worker Name Role Phone No, Physician Primary Care Provider [phone] Encounters Date Type Department Care Team Description 03/09/2025 12:36 PM CDT - 03/09/2025 11:59 PM CDT Hospital En[place] [facility] [place] [address] [place] [address] [phone] Maternal care for excessive growth, third trimester, not applicable or unspecified Discharge Disposition: Discharge to home or self care from Last 3 Months Social History Tobacco Use Types Packs/Day Years Used Date Smoking Tobacco: Never Assessed Comments Unknown Sex and Gender Information Value Date Recorded Sex Assigned at Not on file Legal Sex Female 4:03 PM CDT Gender Identity Not on file Sexual Orientation Not on file Plan of Treatment Health Maintenance Due Date Last Done Comments Cervical Cancer Screening 1994 Depression Screening 1994 Hepatitis C Screening 1994 Varicella Vaccines (1 of 2 - 13+ 2-dose series) 08/29/2007 HPV Vaccines (3 - 3-dose series) 04/01/2012 01/08/2012, 01/30/2011 Regular Well Visit/Exam 18-64 2012 DTaP/Tdap/Td Vaccine (7 - Td or Tdap) 09/11/2018 09/11/2008, 11/16/1999, 03/13/1996, Additional history exists Covid-19 Vaccine ( - 2024- season) 2025 05/08/2023, 05/29/2022, 04/13/2021, Additional history exists Influenza Vaccine (#1) 2025 , 05/29/2022, 03/29/2021 Hepatitis B Screening Completed 03/16/2003 , 04/29/2002, 03/28/2002 Pneumococcal vaccine <65 Aged Out No longer eligible based on patient's age to complete this topic Procedures Procedure Name Priority Date/Time Associated Diagnosis Comments US OB LIMITED Schedule Routine, Read Routine (OP Routine) 03/09/2025 1:13 PM CDT Maternal care for excessive growth, third trimester, not applicable or unspecified from Last 3 Months Results * US Ob Limited (03/09/2025 1:13 PM CDT) Anatomical Region Laterality Modality Abdomen N/A Ultrasound 03/09/2025 1:20 PM CDT Narrative 03/09/2025 1:23 PM CDT EXAM DESCRIPTION: US OB LIMITED REASON FOR STUDY: maternal care for excessive growth TECHNIQUE: Limited transabdominal grayscale ultrasound for obstetrical evaluation. COMPARISON: None available FINDINGS: Clinical gestational age: 38 weeks 1 day Clinical estimated Due Date: 03/22/2025 number: 1 Presentation: Cephalic Placenta location: Fundal Amniotic fluid: 8.2 cm ROSANA heart rate: 144 bpm measurements: Biparietal diameter: 9.18 cm ( 37 weeks 2 days ) Head circumference: 34.21 cm ( 39 weeks 3 days ) Abdominal circumference: 35.78 cm ( 3 9 weeks 5 days ) Femur length: 7.38 cm ( 37 weeks 5 days ) Ratios: FL/AC: 20.6 (20-24) HC/AC: 0.96 ( 0.92 - 1.05 ) Gestational age by this ultrasound: 38 weeks 4 days CLYDE by this ultrasound: 03/19/2025 Estimated weight by this ultrasound: 3638 g ( 8 pounds 19 ounces ) EFW percentile (based on head lock ): 82 % Cervical length: 4.3 Other: IMPRESSION: Single live intrauterine gestation as above. THIS IS AN ELECTRONICALLY VERIFIED FINAL REPORT 03/09/2025 1:23 PM - Electronically signed by Shawn Haas M.D. RB T: Report ID: [id number] Reading Location: [id number] Procedure Note Shawn Haas MD - 03/09/2025 EXAM DESCRIPTION: US OB LIMITED REASON FOR STUDY: maternal care for excessive growth TECHNIQUE: Limited transabdominal grayscale ultrasound for obstetrical evaluation. COMPARISON: None available FINDINGS: Clinical gestational age: 38 weeks 1 day Clinical estimated Due Date: 03/22/2025 number: 1 Presentation: Cephalic Placenta location: Fundal Amniotic fluid: 8.2 cm ROSANA heart rate: 144 bpm measurements: Biparietal diameter: 9.18 cm ( 37 weeks 2 days ) Head circumference: 34.21 cm ( 39 weeks 3 days ) Abdominal circumference: 35.78 cm ( 3 9 weeks 5 days ) Femur length: 7.38 cm ( 37 weeks 5 days ) Ratios: FL/AC: 20.6 (20-24) HC/AC: 0.96 ( 0.92 - 1.05 ) Gestational age by this ultrasound: 38 weeks 4 days CLYDE by this ultrasound: 03/19/2025 Estimated weight by this ultrasound: 3638 g ( 8 pounds 19 ounces) EFW percentile (based on head lock ): 82 % Cervical length: 4.3 Other: IMPRESSION: Single live intrauterine gestation as above. THIS IS AN ELECTRONICALLY VERIFIED FINAL REPORT 03/09/2025 1:23 PM - Electronically signed by Shawn Haas M.D. RB T: Report ID: [id number] Reading Location: [place] [address] us Isabelle Ellis MD IMG OB US PROCEDURES Fin al Result from Last 3 Months Insurance [employer] O[employer] Care Teams Plant Operations Worker Relationship Specialty Start Date End Date No, Physician PCP - General 02/27/25
--- OUTSIDE RECORDS SUMMARY | 2025-03-23 06:50 | XMS_ITS | Encounter Summary ---
Author Organization [facility] Address [address] [place] [address] Care Team Providers Care Administrative Aide Name Role Phone Unavailable Primary Care Provider Unavailabl e Reason for Visit * Reason Onset Date Comments medical management 12/03/2020 Gave to MEHREEN nicole on her cell phone Encounter Details Date Type Department Care Team (Late st Contact Info) Description 12/03/2020 Telephone [facility] Admitting [address] [place] [address] [place] [address] [facility] [address] [place] [address] medical management (Gave to MEHREEN Castro on her cell phone) Social History Tobacco Use Types Packs/Day Years Used Date Smoking Tobacco: Former Smokeless Tobacco: Never Alcohol Use Standard Drinks/Week Comments Yes 0 (1 standard drink = 0.6 oz pur e alcohol) Comments No Sex and Gender Information Value Date Recorded Sex Assigned at Not on file Legal Sex Female 12:30 PM CDT Gender Identity Not on file Sexual Orientation Not on file COVID-19 Exposure Response Date Recorded In the last month, have you been in contact with someone who was confirmed or suspected to have Coronavirus / COVID-19? No / Unsure 12/03/2020 8:06 AM CDT documented as of this encounter Plan of Treatment Not on file documented as of this encounter Visit Diagnoses Not on filedocumented in this encounter
--- OUTSIDE RECORDS SUMMARY | 2025-03-23 06:50 | XMS_ITS ---
Author Organization [facility] Source Produ ction (ClinicalSummary Clone) Address Unknown Care Team Providers Care Manager Culture Name Role Phone Unavailable Primary Care Physician Unavailab le Results * [UNITY] ANEUPLOIDY NIPT Performed by: [facility] Component Value Range Date Fraction 6.2% 09/17/2024 06 :14 am [facility] Sex Chromosome Aneuploidy NOT DETECTED 06:14 am [facility] Monosomy X LOW RISK <1 in 10,000 2024 06:14 am [facility] Trisomy 13 LOW RISK <1 in 10,000 2024 06:14 am [facility] Trisomy 18 LOW RISK <1 in 10,000 2024 06:14 am [facility] Trisomy 21 LOW RISK <1 in 10,000 2024 06:14 am [facility] Sex MALE 09/17/2024 06:1 4 am [facility] Gestation FUNEZ 09/18/19 06:14 am [facility] For detailed report, see PDF See PDF 09/17/2024 06:14 am DEC 09/17/2024 06:1 4 am [facility] Social History Observation Value Start Date End Date
[2025-03-23] MEDS: LACTATED RINGERS 1,000 ML 125 ML IV CONT (07:02)
--- NOTE | 2025-03-23 07:02 | LDADM ---
This patient, Sandra Sanchez, was admitted to Labor/Delivery/Recovery 104 on 03/23/25 at 06:23. Plans for labor, pain management and were discussed with patient. Patient/family oriented to hospital policies and general routines including ID bracelet, bed and alarms, visiting hours, pain management, procedures, bathroom and other care routines, personal items, smoking policy, room service/diet and guest tray routines, security routines, and visiting hours. Patient/Family are encouraged to report perceived risks to care and to ask questions if they do not understand what they are told or what they should do. See [facility]BI[facility] for further documentation.
[2025-03-23 07:13] LABS: Hematocrit 26.8 % (37.0-47.0); Hemoglobin 8.1 g/dL (12.0-15.0); Immature Granulocyte Percent A 2.0 % (0-0.5); Lymphocytes Absolute Auto 1.79 K/mm3 (0.9-3.2); Mean Corpuscular HGB Conc 30.2 g/dl (32-36); Mean Corpuscular Hemoglobin 22.7 pg (26-34); Mean Corpuscular Volume 75.1 fl (80-100); Nucleated Red Blood Cells Absolute Auto 0.000 K/mm3 (0.0-0.012); Nucleated Red Blood Cells Perc 0.0 % (0.0-0.2); Platelet Count Result 341 k/mm3 (150-375); Red Blood Count 3.57 M/mm3 (4.2-5.4); White Blood Count 13.6 K/mm3 (4.5-10.0)
[2025-03-23 08:07] LABS: Syphilis IgG/IgM Antibody Non-Reactive (Nonreactive)
--- NOTE | 2025-03-23 08:18 | WPDANESEPPF ---
Anes - Initial Pre Proc Eval Date/Time: 03/23/25 08:18 Surgeon: Isabelle Ellis MD Pre Op Diagnosis: Labor Patient Data Age: 29 Gender: F Height: 1.7 m Weight: 140 kg Last Vital Signs Temp 36.1 C L 03/23/25 07:30 Pulse 86 03/23/25 08:16 BP 104/53 L 03/23/25 08:16 Pulse Ox 100 03/23/25 08:16 O2 Del Method Room Air 03/23/25 07:01 Allergies Allergy/AdvReac Type Severity Reaction Status Date / Time No Known Allergies Allergy Verified 03/23/25 07:19 Home Medications ?Medication ?Instructions ?Recorded ?Confirmed ?Type cholecalciferol (vitamin D3) 1,250 1,250 mcg PO WEEKLY 09/01/23 03/23/25 History mcg (50,000 unit) tablet cyanocobalamin (vitamin B-12) 500 500 mcg PO DAILY 09/01/23 03/23/25 History mcg tablet (Vitamin B-12) escitalopram oxalate 10 mg tablet 10 mg PO DAILY 09/01/23 03/23/25 History (Lexapro) prenat.vits,char,ibw-lieh-aedkk 1 tablet PO DAILY 09/01/23 03/23/25 History ferrous fumarate 324 mg (106 mg 324 mg PO DAILY #30 tabs 09/25/23 03/23/25 Rx iron) tablet valacyclovir 500 mg tablet mg 02/27/25 History Laboratory Tests 03/23/25 07:02 WBC 13.6 H K/mm3 (4.5-10.0) RBC 3.57 L M/mm3 (4.2-5.4) Hgb 8.1 L g/dL (12.0-15.0) Hct 26.8 L % (37.0-47.0) MCV 75.1 L fl (80-100) MCH 22.7 L pg (26-34) MCHC 30.2 L g/dl (32-36) RDW 16.3 H % (11.5-14.5) Plt Count 341 k/mm3 (150-375) MPV 11.1 H fl (7.4-10.4) Immature Gran % (Auto) 2.0 H % (0-0.5) Neut % (Auto) 77.0 H % (45.5-73.1) Lymph % (Auto) 13.1 L % (18.3-44.2) [place] % (Auto) 7.0 % (2.6-8.5) Eos % (Auto) 0.5 % (0-4.4) Baso % (Auto) 0.4 % (0.2-1.2) Lymph # (Auto) 1.79 K/mm3 (0.9-3.2) [place] # (Auto) 1.0 H K/mm3 (0.1-0.6) Eos # (Auto) 0.1 K/mm3 (0-0.3) Baso # (Auto) 0.1 K/mm3 (0.0-0.1) Abs Immat Gran (auto) 0.27 H K/mm3 (0.00-0.031) Absolute Neuts (auto) 10.5 H K/mm3 (1.3-6.7) Absolute Nucleated RBC 0.000 K/mm3 (0.0-0.012) Nucleated RBC % 0.0 % (0.0-0.2) Syphilis IgG/IgM Ab Non-reactive (Nonreactive) Blood Type O Positive Antibody Screen Negative Patient hx anesthesia problems: none Family hx anesthesia problems: none Results Review: All pre-operative results and documents have been reviewed as part of the pre-operative evaluation. [facility] Past Medical History Medical History Morbid obesity Depression Anxiety HSV (herpes simplex virus) anogenital infection IUP (intrauterine ), incidental Hx of migraines Family History Family History Father Diabetes mellitus Social History Social History Smoking status: Never smoker Substance use: never Do You Feel Safe in your Home?: Yes Lack of Transportation: No Lack of Food: Never True Current Housing: I Have Housing Concerned About Future Housing: No Difficulty Paying Gas/Electric Bills: No Difficulty Paying for Meds: No Currently Unemployed: No Education: Master's Degree or Higher Difficulty w/ Childcare or Family Care: No Spiritual care concerns: No Anes - Eval Final PreProcedure Day of Procedure 03/23/25 08:18 Patient weight: morbidly obese Heart: regular rate and rhythm Lungs: clear to auscultation Neurological: alert and oriented ASA classification: III Emergent: no Anesthetic plan: proceed Anesthesia type and monitoring: regional epidural and standard monitoring Results Review: All pre-operative results and documents have been reviewed as part of the pre-operative evaluation. Informed Consent: The patient's anesthetic plan and its attendant risks and benefits were discussed with the patient/family/POA. Questions were solicited and answers provided to the satisfaction of the patient/family/POA.
[2025-03-23] MEDS: OXYTOCIN 30 UNITS/NS 500 ML 30 UNITS/500 ML BAG 999 UNITS IV CONT (10:07)
--- NOTE | 2025-03-23 10:08 | S_PTH ---
PATIENT: Sandra Sanchez I LOC: [facility] U#:[id number] AGE/SX: 29/F ROOM: 288 RE03/23/[address]: Isabelle Ellis MD : [id number] BED: 00 DIS: 03/25/2025 SPEC #: [id number] RECD: 03/24/25 09:29 STATUS: THEO REElmer #: [id number] ADOLFO: 03/23/25 10:[address]: Isabelle Ellis DEPT: [facility] Surgical RECD BY: Bj Person Tissues: A - Placenta Procedures: Hematoxylin and Eosin Stain Gross and Microscopic Level 5
--- NOTE | 2025-03-23 10:36 | WPDOBADMIT ---
Obstetrics - Admit Note Admission Note: record reviewed. No pertinent additions to the history and/or any subsequent changes in the physical findings that are not consistent with the expected course of the were found. Additions to the history and/or subsequent changes in the physical findings follow. None.Patient arrived in labor and on first check SROM and noted vertex, 5 cm. Labor progressed quickly on own. FHTs category I.
--- NOTE | 2025-03-23 10:37 | PM.OBPRVD ---
OB - Vaginal Delivery Note Procedure Delivery date: 03/23/25 Events: Other (Failed external version but converted to vertex on its own) Induction method: None Delivery monitor: External FHT, External Uterine and Internal FHT Route of delivery: Episiotomy description: None Laceration Description: Periurethral (Bilateral,) Delivery repair: vicryl (3-o) Specimen: Yes (Placenta due to what appears to be a subchorionic hematoma) Quantitative Blood Loss (ml): 100 Anesthesia type: Epidural Disposition: Floor Complications: No immediate complications Narrative: As the infant was she was noted to have a buttonhole from a prior tear at the top of the introitus block the view of urethra. After the infant was born the left side of the bridge of tissue was tearing off and had approximately a 0.5cm portion that was not torn. The patient had a right periurethral laceration as well. After discussion with the patient and her decision was made to excise the bridge of tissue. Both insertion sites of the bridge were closed using 3-0 Vicryl in a running fashion. Baby Date of : 03/23/25 Gestational Age by Date: 40 gender: Male presentation: vertex position: Right Occiput Anterior Placenta delivery description: Spontaneous Cord Vessel Description: 3 Vessels and Delayed Cord Clamping score one minute: 9 score five minutes: 9
--- NOTE | 2025-03-23 10:41 | PM.OBDSVD ---
DS: Admitting Diagnosis Discharge Date 03/25/25 Admitting Diagnosis Intrauterine at 40 weeks in active labor DS: Discharge Diagnosis Discharge Diagnosis (1) (normal spontaneous vaginal delivery): Code(s): O80 - Encounter for full-term uncomplicated delivery Status: Acute OB - DS: Summary OB Procedures : Ultrasound OB Procedures Intrapartum: Spontaneous Vag Delivery OB Procedures: : None Peripartum Data Delivery Method: Natural Vaginal Laceration Description: Periurethral (Bilateral,) Episiotomy description: None complications: none Status at Discharge Functional status at discharge: independent ambulation Overall status at discharge: patient is progressing back to baseline Time Spent with Patient Time attestation: Total time spent providing and/or coordinating discharge services: DS: Data Data Completed and Pending Pending studies at discharge: Pending at discharge 03/23/25 10:08 Surgical [PTH] Routine Labs on day of discharge: Labs from last 24 hours 03/23/25 07:02 WBC 13.6 H RBC 3.57 L Hgb 8.1 L Hct 26.8 L MCV 75.1 L MCH 22.7 L MCHC 30.2 L RDW 16.3 H Plt Count 341 MPV 11.1 H Immature Gran % (Auto) 2.0 H Neut % (Auto) 77.0 H Lymph % (Auto) 13.1 L Cameron % (Auto) 7.0 Eos % (Auto) 0.5 Baso % (Auto) 0.4 Lymph # (Auto) 1.79 Cameron # (Auto) 1.0 H Eos # (Auto) 0.1 Baso # (Auto) 0.1 Abs Immat Gran (auto) 0.27 H Absolute Neuts (auto) 10.5 H Absolute Nucleated RBC 0.000 Nucleated RBC % 0.0 Syphilis IgG/IgM Ab Non-reactive Blood Type O Positive Antibody Screen Negative Discharge Plan Discharge Attending physician on discharge: Isabelle Ellis Discharging Clinician: Isabelle Ellis Anticipated Discharge Date/Time: 03/25/25 10:41 Patient Disposition: Home Activity: may shower and pelvic rest Diet: regular Patient Instructions: Antibiotic Form Patient Language: Bulgarian Stand Alone Forms: General Discharge Information Follow-up/Referrals: Isabelle Ellis MD [Physician, LOOPING MACHINE OPERATOR] - 6 Weeks Discharge Medications: Continued cyanocobalamin (vitamin B-12) [Vitamin B-12] 500 mcg Tablet 500 mcg PO DAILY prenat.vits,char,xmr-swso-jdpsb Tablet 1 tablet PO DAILY escitalopram oxalate [Lexapro] 10 mg Tablet 10 mg PO DAILY cholecalciferol (vitamin D3) 1,250 mcg (50,000 unit) Tablet 1,250 mcg PO WEEKLY valacyclovir 500 mg tablet Changed ferrous fumarate 324 mg (106 mg iron) tablet 324 mg PO BIDWMEAL Qty: 30 0RF Date of admission: 03/23/25 06:23 Primary Care Provider: MelissaPascual Admitting Provider: Isabelle Ellis Attending physician on admission: Isabelle Ellis Condition: Stable
[2025-03-23] MEDS: OXYTOCIN 30 UNITS/NS 500 ML 30 UNITS/500 ML BAG 125 UNITS IV CONT (10:43)
[2025-03-23] MEDS: BENZOCAINE 20% AER SPR (*SP) 56 GM CAN 1 SPRAY TOPICAL (12:41)
[2025-03-23] MEDS: WITCH HAZEL 40 PADS 1 PAD TOPICAL (12:42)
--- NOTE | 2025-03-23 13:25 | OBPPTRN ---
Patient transferred to post room #288 via wheelchair. Support person present. Oriented to unit, room, information board, rooming in, admission packet and security measures. Patient verbalizes understanding.
--- NOTE | 2025-03-23 15:00 | PC.NURSE ---
Introductions were made, then consulted with patient to assess needs related to . Discussed with mother her?plans to feed?her and the?experience so far. Her intention was exclusive pumping and bottle feeding, but she has put baby to breast a few times with success. Discussed with patient that if she is having regular breast stimulation each feeding, she does not need to pump at this time. She thinks she wants to continue putting baby to breast while here and then pump when she gets home. She knows that she can ask for a hospital pump to be set up for her at any time. Resources provided for inpatient and outpatient services with the feeding sheet, mom/baby guide and name written on the communication board. Mother voiced understanding of information and will call if there is a request for assistance. Reported to the Primary RN.
[2025-03-23] MEDS: ACETAMINOPHEN 325 MG TABLET 650 MG PO (15:05)
[2025-03-23] MEDS: DOCUSATE SODIUM 100 MG CAPSULE PO (17:43)
[2025-03-23] MEDS: IBUPROFEN 600 MG TABLET PO (20:33)
[2025-03-23] MEDS: ESCITALOPRAM OXALATE 10 MG TABLET PO (20:33)
[2025-03-24] MEDS: ACETAMINOPHEN 325 MG TABLET 650 MG PO ×4 (01:15→21:25)
[2025-03-24 04:58] LABS: Hematocrit 24.8 % (37.0-47.0); Hemoglobin 7.6 g/dL (12.0-15.0)
[2025-03-24 07:25] VITALS: BP 126/72; PULSE 73; RESP 16; TEMP 36.9; O2SAT 98
--- NOTE | 2025-03-24 07:32 | P.PNOB_ITS ---
OB - PN: Subj Subjective Date/time seen: 03/24/25 07:32 Patient comments: no complaints and pain well controlled baby status: other (breathing fast per RN going on pulse ox) feeding status: breast and bottle feeding OB - PN: Obj Data Labs 03/24/25 03:28 Labs: Laboratory Results - last 24 hr 03/23/25 03/24/25 07:02 03:28 Hgb 7.6 L Hct 24.8 L Syphilis IgG/IgM Ab Non-reactive Blood Type O Positive Antibody Screen Negative OB - PN A/P Plan day: 1 Plan: routine care Time Spent With Patient Time: Total time spent is greater than 50% in coordination of care (as documented) at patient's floor/unit and/or counseling patient: Exam 2 : Bimanual exam- vagina & uterus: other (Uterus firm, nt @U)
[2025-03-24] MEDS: MULTIVIT/MIN/PREN/FOL AC/IRON TABLET 1 TAB PO (07:57)
[2025-03-24] MEDS: DOCUSATE SODIUM 100 MG CAPSULE PO ×2 (07:57→15:58)
--- NOTE | 2025-03-24 08:15 | WPDANLDPN2 ---
Anes-Prog Note L&D Date/Time: 03/24/25 08:15 Comfortable throughout: labor and delivery Neuraxial method: epidural Epidural/Spinal procedure site: clean & non-tender Neuro status: Neuro function grossly intact. Cardiovascular status: normal Respiratory status: normal Airway patency: baseline Mental status: baseline Post-Op hydration status: normal Vital Signs: Last Vital Signs Temp 97.6 F 03/23/25 23:03 Pulse 73 03/23/25 23:03 Resp 18 03/23/25 23:03 BP 105/63 03/23/25 23:03 Pulse Ox 100 03/23/25 23:03 O2 Del Method Room Air 03/23/25 18:54 Pain score (VAS): 0/10 Post-procedural complaints: none Patient feedback: Patient satisfied with anesthetic care.
[2025-03-24] MEDS: IBUPROFEN 600 MG TABLET PO (14:42)
[2025-03-24 20:03] VITALS: BP 121/60; PULSE 88; RESP 18; TEMP 36.7; O2SAT 98
[2025-03-24] MEDS: ESCITALOPRAM OXALATE 10 MG TABLET PO (22:49)
[2025-03-25] MEDS: ACETAMINOPHEN 325 MG TABLET 650 MG PO (07:30)
--- NOTE | 2025-03-25 07:45 | P.PNOB_ITS ---
OB - PN: Subj Subjective Date/time seen: 03/25/25 07:45 Patient comments: no complaints and pain well controlled baby status: doing well OB - PN: Obj Data Labs 03/24/25 03:28 OB - PN A/P Plan day: 2 Plan: routine care, discharge home, follow up 6 weeks and other (plans condoms) Time Spent With Patient Time: Total time spent is greater than 50% in coordination of care (as documented) at patient's floor/unit and/or counseling patient: Exam 2 : Bimanual exam- vagina & uterus: other (Uterus firm, nt @U)
[2025-03-25 08:15] VITALS: BP 109/63; PULSE 72; RESP 16; TEMP 36.9; O2SAT 99
[2025-03-25] MEDS: DOCUSATE SODIUM 100 MG CAPSULE PO (09:03)
[2025-03-25] MEDS: MULTIVIT/MIN/PREN/FOL AC/IRON TABLET 1 TAB PO (09:03)
--- NOTE | 2025-03-25 09:57 | PC.NURSE ---
Consulted with mother concerning needs and she shared her ability to independently latch infant optimally without pain. Per mother she is latching baby to breast at times and he is doing well, she then also gives a formula bottle, encouraged mother to use her breast pump if does not go to breast to protect her milk supply. Mother is feeding appropriately for growth of and understands stimulating to eat if needed. has had appropriate feedings in the last 24 hours meets the outcomes for weight, output, blood sugar and jaundice at this time. Reinforced understanding of milk production, transition of milk, signs of adequate intake, transition of stool, prevention/relief of engorgement, plugged ducts, mastitis, responsive watching for feeding cues, the different methods of stimulating infant to breastfeed 1-3 hours after the start of the last feeding, community resources, and when to call a provider using the resource of the feeding sheet along with the mom and baby guide. Mother voiced understanding of the information shared, is confident to continue effectively her at home, when to call for assistance, denies any additional assistance or education at this time. Reported to the Primary RN.
[2025-03-25] MEDS: IBUPROFEN 600 MG TABLET PO (12:15)
== END 2025-03-25 15:05 | disposition home or self-care (01) | DRG 806 ==
LOC: ANHLDR 10:42 → ANHOB2 13:29
PROVIDERS: Admitting Provider Obstetrics & Gynecology Gynecology; Visit Provider Obstetrics & Gynecology Gynecology
DX: O99.213 Obesity complicating pregnancy, third trimester (principal); O98.32 Other infections with a predominantly sexual mode of transmission complicating childbirth; Z37.0 Single live birth; Z3A.40 40 weeks gestation of pregnancy; O71.82 Other specified trauma to perineum and vulva; E66.01 Morbid (severe) obesity due to excess calories; A60.09 Herpesviral infection of other urogenital tract; O43.893 Other placental disorders, third trimester
CPT/HCPCS: 36415; 85014; 85018; 85025; 86593; 86850; 86900; 86901; 88307; A9270; J2590; J2795; J7120